=== PATIENT | female | born 1995 | race Caucasian/White ===

== ENCOUNTER 2018-06-07 10:08 | Outpatient (REF) | payer BC, SELFPAY ==
[2018-06-07 22:10] LABS: Abs Immature Grans 0.01 k/cumm (0.0-0.09); Absolute Basophil Count 0.03 k/cumm (0.0-0.2); Absolute Eosinophil Count 0.07 k/cumm (0.0-0.7); Absolute Lymphocyte Count 2.04 k/cumm (1.2-3.4); Absolute Monocyte Count 0.49 k/cumm (0.11-0.7); Absolute Neutrophil Count 3.55 k/cumm (1.2-6.7); Basophils % 0.5; Eosinophils % 1.1; HCT 41.7 % (36.0-46.0); HGB 13.7 g/dL (12.0-15.5); Immature Grans % 0.2; Mean Corp. HGB Concentration 32.9 g/dL (32.0-36.0); Mean Corpuscular Hemoglobin 28.5 pg (27.0-33.0); Mean Corpuscular Volume 86.7 fL (80-95); Mean Platelet Volume 10.5 fL (8.0-11.0); Monocytes % 7.9; Neutrophils % 57.3; Platelet Count 352 x1000/uL (130-400); RBC 4.81 m/cumm (4.00-5.20); RBC Distribution Width 12.9 % (11.7-14.6); White Blood Cell Count 6.19 k/cumm (4.4-10.8)
[2018-06-07 22:27] LABS: Mono Screening Negative (Negative)
== END 2018-06-07 10:28 ==
LOC: NCHCN 10:08
PROVIDERS: PCP Nurse Practitioner; Visit Provider Nurse Practitioner
DX: R53.83 Other fatigue (principal); R50.9 Fever, unspecified; J02.9 Acute pharyngitis, unspecified
CPT/HCPCS: 85025; 86308

== ENCOUNTER 2018-06-11 17:03 | Outpatient (CLI) | payer BC, SELFPAY ==
--- NOTE | 2018-06-11 13:58 | DI.RAD_ITS ---
SYMPTOMS/DIAGNOSIS: LOW GRADE FEVER, R50.9, FATIGUE, R53.83, COUGH, R05 CHEST X-RAY, PA AND LATERAL: No priors. The heart is normal in size. The lungs are clear. The mediastinal structures and pleura appear intact. IMPRESSION: Normal chest.
== END 2018-06-11 17:23 ==
PROVIDERS: PCP Nurse Practitioner; Visit Provider Nurse Practitioner
DX: R50.9 Fever, unspecified (principal); R53.83 Other fatigue; R05 Cough
CPT/HCPCS: 71046

== ENCOUNTER 2019-01-17 15:20 | Outpatient (REF) | payer BC, SELFPAY ==
--- NOTE | 2019-01-17 13:30 | PAPFT_PTH ---
PATIENT: Bailey Barton LOC: [facility] U#:[id number] AGE/SX: 23/F ROOM: RE01/17/[address]: FERNIE Rahman : 1995 BED: DIS: 01/17/2019 SPEC #: [id number] RECD: 01/17/19 17:37 STATUS: BAM REQ #: [id number] VIJAY: 01/17/19 13:[address]: Cari Olguin DEPT: [facility] Cytology RECD BY: Meghann Dorman ENTERED: 01/17/19 17:38 SP TYPE: PAPFT OTHR DR: Jaleesa Arcos Tissues: 1 - CX/ENDOCX FOR PAP SMEARS Procedures: PAP THIN PREP/[facility] Screening Comments: [id number]
[2019-01-18 15:45] LABS: Chlamydia Result Negative (Negative); GC Result Negative (Negative); Specimen Description CERVIX
== END 2019-01-17 15:40 ==
LOC: LBN 15:20
PROVIDERS: PCP Nurse Practitioner; Visit Provider Nurse Practitioner Family
DX: Z11.3 Encounter for screening for infections with a predominantly sexual mode of transmission (principal); Z12.4 Encounter for screening for malignant neoplasm of cervix; Z11.51 Encounter for screening for human papillomavirus (HPV)
CPT/HCPCS: 87491; 87591; 88142

== ENCOUNTER 2019-10-14 14:18 | Outpatient (REF) | payer BC, SELFPAY ==
[2019-10-14 21:38] LABS: TSH 3.84 uIU/mL (0.36-3.74)
[2019-10-14 21:44] LABS: Hemoglobin A1C 9.1 % (3.8-5.6)
[2019-10-15 00:13] LABS: Vitamin D 25 Total 51.7 ng/ml (30-100)
== END 2019-10-14 14:38 ==
LOC: NCHCN 14:18
PROVIDERS: PCP Nurse Practitioner; Visit Provider Nurse Practitioner Family
DX: E06.3 Autoimmune thyroiditis (principal); E10.9 Type 1 diabetes mellitus without complications; E55.9 Vitamin D deficiency, unspecified
CPT/HCPCS: 82306; 83036; 84443

== ENCOUNTER 2019-11-05 15:12 | Outpatient (REF) | payer BC, SELFPAY | END 2019-11-05 15:32 | LOC: NCHCN 15:12 | PROVIDERS: PCP Nurse Practitioner; Visit Provider Internal Medicine | DX: N39.0 Urinary tract infection, site not specified (principal) | CPT/HCPCS: 87077; 87086; 87186 ==

== ENCOUNTER 2020-02-24 05:38 | Outpatient (REF) | payer BC, SELFPAY ==
[2020-02-24 21:05] LABS: Bilirubin Negative (Negative); Blood Negative (Negative); Clarity Sl Cloudy (Clear); Glucose 500 mg/dL (Negative); Ketones Negative (Negative); Leukocyte Esterase Negative (Negative); Nitrite Negative (Negative); Urobilinogen 0.2 EU/dL (Up TO 0.2)
[2020-02-25 13:06] LABS: COMMENT (LAB VIEW ONLY) 39.87 mg/dL; Microalb ug/mg Crea 15.6 ug/mg Cr
== END 2020-02-24 05:58 ==
LOC: NCHCN 05:38
PROVIDERS: PCP Nurse Practitioner; Visit Provider Family Medicine
DX: E10.65 Type 1 diabetes mellitus with hyperglycemia (principal); R30.0 Dysuria; N39.0 Urinary tract infection, site not specified
CPT/HCPCS: 87077; 81003; 82043; 82570; 87086

== ENCOUNTER 2020-03-17 14:18 | Outpatient (REF) | payer BC, SELFPAY ==
--- NOTE | 2020-03-17 13:00 | PAPFT_PTH ---
PATIENT: Bailey Barton LOC: [facility] U#:[id number] AGE/SX: 24/F ROOM: RE03/17/[address]: FERNIE Rahman : 1995 BED: DIS: 03/17/2020 SPEC #: [id number] RECD: 03/17/20 18:02 STATUS: BAM REQ #: [id number] VIJAY: 03/17/20 13:[address]: Cari Olguin DEPT: [facility] Cytology RECD BY: Meghann Dorman ENTERED: 03/17/20 18:03 SP TYPE: PAPFT OTHR DR: Jaleesa Arcos Tissues: 1 - CX/ENDOCX FOR PAP SMEARS Procedures: PAP THIN PREP/[facility] Screening Comments: [id number]
== END 2020-03-17 14:38 ==
LOC: LBN 14:18
PROVIDERS: PCP Nurse Practitioner; Visit Provider Nurse Practitioner Family
DX: Z12.4 Encounter for screening for malignant neoplasm of cervix (principal)
CPT/HCPCS: 88142

== ENCOUNTER 2020-04-01 15:01 | Outpatient (REF) | payer BC, SELFPAY ==
[2020-04-01 22:20] LABS: Hemoglobin A1C 9.9 % (<5.7)
[2020-04-01 22:26] LABS: COMMENT (LAB VIEW ONLY) 17.76 mg/dL
[2020-04-01 22:29] LABS: ALT 20 U/L (14-59); AST 12 U/L (15-37); Albumin 3.6 g/dL (3.4-5.0); Alkaline Phosphatase 67 U/L (46-116); Anion Gap 6.8 mmol/L (3-11); BUN 10 mg/dL (7-18); Bilirubin, Total 0.2 mg/dL (0.2-1.0); CO2 27.2 mmol/L (21.0-32.0); CREATININE 0.89 mg/dL (0.55-1.02); Calcium 9.1 mg/dL (8.5-10.1); Chloride 101 mmol/L (98-107); Glucose 480 mg/dL (74-106); LDL CHOLESTEROL 84 mg/dL (<100); Potassium 4.7 mmol/L (3.5-5.1); Sodium 135 mmol/L (136-145); TSH 1.75 uIU/mL (0.36-3.74); Total Protein 6.7 g/dL (6.4-8.2)
[2020-04-08 12:30] LABS: 25-Hydroxy D Total 27 ng/mL; 25-Hydroxy D2 15 ng/mL; 25-Hydroxy D3 12 ng/mL
== END 2020-04-01 15:21 ==
LOC: NCHCN 15:01
PROVIDERS: PCP Nurse Practitioner Family; Visit Provider Nurse Practitioner Family
DX: E10.65 Type 1 diabetes mellitus with hyperglycemia (principal); E55.9 Vitamin D deficiency, unspecified; E03.9 Hypothyroidism, unspecified; E06.3 Autoimmune thyroiditis
CPT/HCPCS: 80053; 82306; 83721; 82043; 82570; 83036; 84443

== ENCOUNTER 2020-05-13 12:03 | Outpatient (REF) | payer BC, SELFPAY ==
[2020-05-13 15:19] LABS: ALT 25 U/L (14-59); AST 14 U/L (15-37); Albumin 3.8 g/dL (3.4-5.0); Alkaline Phosphatase 74 U/L (46-116); BUN 9 mg/dL (7-18); Bilirubin, Total 0.2 mg/dL (0.2-1.0); CREATININE 0.8 mg/dL (0.55-1.02); Calcium 9.5 mg/dL (8.5-10.1); Chloride 104 mmol/L (98-107); Glucose 125 mg/dL (74-106); LDL CHOLESTEROL 76 mg/dL (<100); Potassium 4.4 mmol/L (3.5-5.1); Sodium 140 mmol/L (136-145); Total Protein 7.2 g/dL (6.4-8.2)
[2020-05-13 18:24] LABS: Hemoglobin A1C 8.7 % (<5.7)
[2020-05-14 05:32] LABS: Vitamin D 25 Total 20.8 ng/ml (30-100)
== END 2020-05-13 12:04 | disposition home or self-care (01) ==
LOC: NCHCN 12:03
PROVIDERS: Family Medicine; PCP Nurse Practitioner Family; Visit Provider Nurse Practitioner Family
DX: E10.65 Type 1 diabetes mellitus with hyperglycemia (principal); E06.3 Autoimmune thyroiditis
CPT/HCPCS: 80053; 82306; 83721; 83036; 84443

== ENCOUNTER 2020-09-15 16:11 | Outpatient (REF) | payer BC, SELFPAY ==
[2020-09-15 14:28] LABS: COMMENT (LAB VIEW ONLY) 168.46 mg/dL; Microalb ug/mg Crea 3.4 ug/mg Cr
[2020-09-15 14:38] LABS: CREATININE 0.8 mg/dL (0.55-1.02); LDL CHOLESTEROL 64 mg/dL (<100); TSH 1.19 uIU/mL (0.36-3.74)
[2020-09-15 14:42] LABS: Hemoglobin A1C 7.9 % (<5.7)
[2020-09-17 01:19] LABS: Vitamin D 25 Total 83.5 ng/mL (30-100)
== END 2020-09-15 16:12 | disposition home or self-care (01) ==
LOC: NCHCN 16:11
PROVIDERS: PCP Nurse Practitioner Family; Visit Provider Nurse Practitioner Family
DX: E10.65 Type 1 diabetes mellitus with hyperglycemia (principal); E06.3 Autoimmune thyroiditis; E03.9 Hypothyroidism, unspecified; E55.9 Vitamin D deficiency, unspecified
CPT/HCPCS: 82306; 83721; 82043; 82565; 82570; 83036; 84443

== ENCOUNTER 2020-10-13 12:08 | Outpatient (REF) | payer BC, SELFPAY | END 2020-10-13 12:09 | disposition home or self-care (01) | LOC: NCHCN 12:08 | PROVIDERS: PCP Nurse Practitioner Family; Visit Provider Nurse Practitioner Family | DX: N39.0 Urinary tract infection, site not specified (principal) | CPT/HCPCS: 87086 ==

== ENCOUNTER 2021-05-20 16:08 | Outpatient (REF) | payer BC, SELFPAY ==
--- NOTE | 2021-05-20 15:30 | PAPFT_PTH ---
PATIENT: Bailey Barton LOC: [facility] U#:[id number] AGE/SX: 26/F ROOM: RE05/20/[address]: FERNIE Rahman : 1995 BED: DIS: 05/20/2021 SPEC #: [id number] RECD: 05/20/21 18:17 STATUS: BAM REQ #: [id number] VIJAY: 05/20/21 15:[address]: Cari Olguin DEPT: [facility] Cytology RECD BY: Meghann Dorman ENTERED: 05/20/21 18:18 SP TYPE: PAPFT OTHR DR: Mariam Zamora Tissues: 1 - CX/ENDOCX FOR PAP SMEARS Procedures: PAP THIN PREP/[facility] Screening Comments: [id number]
== END 2021-05-20 16:09 | disposition home or self-care (01) ==
LOC: LBN 16:08
PROVIDERS: PCP Nurse Practitioner Family; Visit Provider Nurse Practitioner Family
DX: Z12.4 Encounter for screening for malignant neoplasm of cervix (principal)
CPT/HCPCS: 88142

== ENCOUNTER 2023-10-14 12:24 | Outpatient (REF) | payer BC, SELFPAY | END 2023-10-14 12:25 | disposition home or self-care (01) | LOC: LBN 12:24 | PROVIDERS: PCP Nurse Practitioner Family; Visit Provider Nurse Practitioner Family | DX: R30.0 Dysuria (principal) | CPT/HCPCS: 87077; 87086; 87186 ==

== ENCOUNTER 2024-08-19 14:56 | Outpatient (REF) | payer BC, SELFPAY | END 2024-08-19 14:57 | disposition home or self-care (01) | LOC: NCHCN 14:56 | PROVIDERS: PCP Nurse Practitioner Family; Visit Provider Family Medicine | DX: R30.0 Dysuria (principal); B96.29 Other Escherichia coli [E. coli] as the cause of diseases classified elsewhere | CPT/HCPCS: 87077; 87086; 87186 ==

== ENCOUNTER 2025-01-20 17:11 | Outpatient (REF) | payer BC, SELFPAY ==
--- NOTE | 2025-01-20 15:40 | PAPFT_PTH ---
PATIENT: Bailey Barton LOC: [facility] U#:[id number] AGE/SX: 29/F ROOM: RE01/20/[address]: Karina Soler DO : 1995 BED: DIS: 01/20/2025 SPEC #: [id number] RECD: 01/20/25 18:37 STATUS: SOUHallie REQ #: [id number] VIJAY: 01/20/25 15:[address]: Karina Soler DEPT: [facility] Cytology RECD BY: Meghann Dorman ENTERED: 01/20/25 18:38 SP TYPE: PAPFT OTHR DR: Mariam Zamora Tissues: 1 - CX/ENDOCX FOR PAP SMEARS Procedures: PAP THIN PREP/[facility] Screening HPV DNA PROBE Comments: [id number] (HPV 16 & 18/45)
== END 2025-01-20 17:12 | disposition home or self-care (01) ==
LOC: LBN 17:11
PROVIDERS: PCP Nurse Practitioner Family; Visit Provider Obstetrics & Gynecology
DX: Z12.4 Encounter for screening for malignant neoplasm of cervix (principal)
CPT/HCPCS: 88142; 87624